=== PATIENT | female | born 1955 | race Caucasian/White ===

== ENCOUNTER 2021-10-18 16:25 | Emergency (ER) | payer MEDICARE, OTHER ==
[~2021-10-18] VITALS: Ht 175.3 cm; Wt 125.3 kg
[2021-10-18] MEDS ORDERED: IV NORMAL SALINE 1,000ML 1,000 ML IV ONE (17:45)
[2021-10-18 17:51] LABS: BASO # 0.1 x10^3/uL (0.0-0.2); BASO % 1 % (0-3); EOS # 0.1 x10^3/uL (0.0-0.7); EOS % 1 % (0-3); HEMATOCRIT 44.6 % (36.0-47.0); HEMOGLOBIN 14.6 g/dL (12.0-15.5); LYMPH # 1.6 x10^3/uL (1.0-4.8); LYMPH % 15 % (24-48); MEAN CORPUSCULAR HEMOGLOBIN 28 pg (25-35); MEAN CORPUSCULAR HGB CONC 33 g/dL (31-37); MEAN CORPUSCULAR VOLUME 86 fL (79-100); MONO # 0.6 x10^3/uL (0.0-1.1); MONO % 5 % (0-9); NEUT # 8.7 x10^3uL (1.8-7.7); NEUT % 79 % (31-73); PLATELET COUNT 274 x10^3/uL (140-400); RED BLOOD COUNT 5.18 x10^6/uL (3.50-5.40); RED CELL DISTRIBUTION WIDTH 13.5 % (11.5-14.5)
[2021-10-18 18:02] LABS: BILIRUBIN,URINE SMALL (NEG); CLARITY,URINE CLEAR; COLOR,URINE YELLOW; GLUCOSE,URINE NEG (NEG)
[2021-10-18 18:03] LABS: BACTERIA,URINE FEW /HPF (0-FEW); NITRITE,URINE NEG (NEG); RBC,URINE OCC /HPF (0-2); SQUAMOUS EPITHELIAL CELL,UR MANY /LPF
--- NOTE | 2021-10-18 18:22 | RAD ---
Exam: CT of abdomen and pelvis without contrast INDICATION: Hematuria TECHNIQUE: Sequential axial images through the abdomen and pelvis obtained without IV contrast. Sagit chai and coronal reformatted images were reconstructed from the axial data and reviewed. Exposure: One or more of the following in the visualized dose reduction techniques were utilized for this examination: 1. Automated exposure control 2. Adjustment of the MA and/or KV according to patient size 3. Use of iterative of reconstructive technique Comparisons: None FINDINGS: Heart size is normal. No pericardial effusion. Visualized lung bases are clear. No pleural effusion. Evaluation of solid organs limited secondary to noncontrast technique. Liver, spleen, pancreas, and adrenals are unremarkable. Gallstones are within the gallbladder. No perinephric inflammation or hydronephrosis. No renal or ureteral calculi are identified. Bladder is decompressed not well evaluated. Uterus is nonenlarged. No abnormal adnexal mass. Large and small bowel are unremarkable. Appendix is nonidentified. No free intra-abdominal air or flu id. No obstruction. Abdominal aorta has a normal course and caliber. No enlarged intra-abdominal lymph nodes are identified. Fat-containing umbilical hernia. No suspicious osseous lesions or acute fractures. IMPRESSION: 1. No renal or ureteral calculi. No evidence for obstructive uropathy. 2. Cholelithiasis Electronically signed by: Lj Mcdaniel MD (10/18/2021 6:20 PM) [facility]
--- NOTE | 2021-10-18 18:50 | PHYS DOC ---
Past History Past Medical History: Renal Disease, Stroke (2016) (ANTONIO MARIE) Past Surgical History: Gastric Bypass (ANTONIO MARIE) Smoking: Quit Greater Than 1 Year Alcohol Use: None (ANTONIO MARIE) General Adult EDM: Chief Complaint: ABDOMINAL PAIN HPI: HPI: Patient is a 66 year old female who presents with weakness, bloody urine for greater than 1 week. Patient is in no pain currently. She says she first noticed blood in her urine approximately 10 days ago. She says it has not been constant since that time, but has had multiple episodes. She reports associated abdominal pain that begins epigastric and radiates down to the low abdomen. She describes the pain as "tightness." Patient does have history of renal failure, though she is unsure whether this is chronic or acute, she quit smoking cigarettes 10 years ago, and has had a perforated gastric ulcer in the past. Patient denies fever, chills, NVD, constipation, dysuria. (ANTONIO MARIE) Review of Systems: Review of Systems: Constitutional: See HPI Eyes: Denies change in visual acuity HENT: Denies nasal congestion or sore throat Respiratory: Denies cough or shortness of breath Cardiovascular: Denies chest pain or edema GI: See HPI : See HPI Musculoskeletal: Denies back pain or joint pain Integument: Denies rash or other skin lesions Neurologic: Denies headache, focal weakness or sensory changes (ANTONIO MARIE) Current Medications: Current Meds: Current Medications Medications (Trade) Dose Ordered Sig/Yarelis Start Time Stop Time Status Last Admin Dose Admin Sodium Chloride 1,000 ml @ 1,000 mls/hr 1X ONCE 10/18/21 17:45 10/18/21 18:45 DC 10/18/21 17:45 1,000 MLS/HR (ANTONIO MARIE) Allergies: Allergies: Allergies Coded Allergies Type Severity Reaction Last Updated Verified No Known Drug Allergies 10/18/21 No (ANTONIO MARIE) Physical Exam: PE: Constitutional: Obese, well developed, well nourished, no acute distress, non- toxic appearance. HENT: Normocephalic, atraumatic, bilateral external ears normal, oropharynx moist, nose normal. Eyes: EOMI, conjunctiva normal, no discharge. Neck: Normal range of motion, no tenderness, supple, no stridor. Cardiovascular: Heart rate regular rhythm, no murmur. Lungs & Thorax: Bilateral breath sounds clear to auscultation. Abdomen: Bowel sounds normal, soft, mild epigastric tenderness reproducible on palpation, no masses, no pulsatile masses. Skin: Warm, dry, no erythema, no rash. Back: No tenderness, no CVA tenderness. Extremities: No tenderness, no cyanosis, no clubbing, ROM intact, no edema. Neurologic: Alert and oriented x4, motor function grossly intact, sensory function grossly intact, no focal deficits noted. (ANTONIO MARIE) Current Patient Data: Labs: Laboratory Tests Test 10/18/21 17:11 10/18/21 17:24 Urine Collection Type Unknown Urine Color Yellow Urine Clarity Clear Urine pH 5.5 Urine Specific [place] 1.015 Urine Protein 30 mg/dl (NEG-TRACE) Urine Glucose (UA) Neg mg/dL (NEG) Urine Ketones (Stick) Neg mg/dL (NEG) Urine Blood Neg (NEG) Urine Nitrite Neg (NEG) Urine Bilirubin Small (NEG) Urine Urobilinogen Dipstick 1.0 mg/dL (0.2 mg/dL) Urine Leukocyte Esterase Neg (NEG) Urine RBC Occ /HPF (0-2) Urine WBC 1-4 /HPF (0-4) Urine Squamous Epithelial Cells Many /LPF Urine Bacteria Few /HPF (0-FEW) White Blood Count 11.0 x10^3/uL (4.0-11.0) Red Blood Count 5.18 x10^6/uL (3.50-5.40) Hemoglobin 14.6 g/dL (12.0-15.5) Hematocrit 44.6 % (36.0-47.0) Mean Corpuscular Volume 86 fL (79-100) Mean Corpuscular Hemoglobin 28 pg (25-35) Mean Corpuscular Hemoglobin Concent 33 g/dL (31-37) Red Cell Distribution Width 13.5 % (11.5-14.5) Platelet Count 274 x10^3/uL (140-400) Neutrophils (%) (Auto) 79 % (31-73) H Lymphocytes (%) (Auto) 15 % (24-48) L Monocytes (%) (Auto) 5 % (0-9) Eosinophils (%) (Auto) 1 % (0-3) Basophils (%) (Auto) 1 % (0-3) Neutrophils # (Auto) 8.7 x10^3uL (1.8-7.7) H Lymphocytes # (Auto) 1.6 x10^3/uL (1.0-4.8) Monocytes # (Auto) 0.6 x10^3/uL (0.0-1.1) Eosinophils # (Auto) 0.1 x10^3/uL (0.0-0.7) Basophils # (Auto) 0.1 x10^3/uL (0.0-0.2) Vital Signs: Vital Signs Date Time Temp Pulse Resp B/P (MAP) Pulse Ox O2 Delivery O2 Flow Rate FiO2 10/18/21 17:41 97.9 64 16 198/108 (138) 96 (ANTONIO MARIE) Radiology/Procedures: Radiology/Procedures: PROCEDURE: CT ABDOMEN PELVIS WO CONTRAST Exam: CT of abdomen and pelvis without contrast INDICATION: Hematuria TECHNIQUE: Sequential axial images through the abdomen and pelvis obtained without IV contrast. Sagittal and coronal reformatted images were reconstructed from the axial data and reviewed. Exposure: One or more of the following in the visualized dose reduction techniques were utilized for this examination: 1. Automated exposure control 2. Adjustment of the MA and/or KV according to patient size 3. Use of iterative of reconstructive technique Comparisons: None FINDINGS: Heart size is normal. No pericardial effusion. Visualized lung bases are clear. No pleural effusion. Evaluation of solid organs limited secondary to noncontrast technique. Liver, spleen, pancreas, and adrenals are unremarkable. Gallstones are within the gallbladder. No perinephric inflammation or hydronephrosis. No renal or ureteral calculi are identified. Bladder is decompressed not well evaluated. Uterus is nonenlarged. No abnormal adnexal mass. Large and small bowel are unremarkable. Appendix is nonidentified. No free intra-abdominal air or fluid. No obstruction. Abdominal aorta has a normal course and caliber. No enlarged intra-abdominal lymph nodes are identified. Fat-containing umbilical hernia. No suspicious osseous lesions or acute fractures. IMPRESSION: 1. No renal or ureteral calculi. No evidence for obstructive uropathy. 2. Cholelithiasis Electronically signed by: Lj Mcdaniel MD (10/18/2021 6:20 PM) -[facility] (ANTONIO MARIE) Heart Score: C/O Chest Pain: No (ANTONIO MARIE) Course & Med Decision Making: Course & Med Decision Making Pertinent Labs and Imaging studies reviewed. (See chart for details) Patient history of smoking combined with gross hematuria concerning for bladder mass. Also considering renal stone, renal mass, kidney injury. Work-up today will include lab work, urinalysis, CT abdomen pelvis. Decided to do CT imaging noncontrast secondary to patient's reported renal history. Patient's blood pressure elevated here in the department. Patient does have history of hypertension, but has taken none of her medications today. She did take 25 mg of her at home hydralazine while in the department. CT negative for obvious bladder mass, renal mass, nephrourolithiasis. Hepatic panel enzymes are elevated, however nothing requiring inpatient evaluation. Patient is to be seen by Dr. Mcdowell as a new patient in coming weeks. Advised her to follow-up with Dr. Mcdowell for repeat lab work during her visit as well as obtain GI referral. I did provide the patient with the name of a brickmason contractor, however advised her that Dr. Mcdowell may direct her elsewhere. Return precautions given for any new symptoms, especially jaundice, scleral icterus, intractable abdominal pain, nausea/vomiting. Patient and her daughter at bedside understand and are agreeable to discharge plan. (ANTONIO MARIE) Dragon Disclaimer: Dragon Disclaimer: This electronic medical record was generated, in whole or in part, using a voice recognition dictation system. (ANTONIO MARIE) Departure Departure: Impression: Primary Impression: Elevated liver enzymes Additional Impression: Bilirubin in urine Disposition: HOME / SELF CARE / HOMELESS Condition: STABLE Referrals: SIDRA MCDOWELL (PCP) MARK SHORE MD Patient Instructions: Liver Panel Additional Instructions: Please schedule an appointment with Dr. Mcdowell at your earliest convenience. I provided you with the contact information for a brickmason contractor as well. It is possible that Dr. Mcdowell will have her on recommendation and referral. During your appointment, she may draw new blood to reevaluate liver enzymes. Please return to the emergency department if you have any new symptoms, especially yellowing of the eyes or skin, severe abdominal pain, nausea/ vomiting. Please take your hypertensive medications as prescribed to avoid elevated blood pressure readings, such as the one seen today. Attending Signature Attending Signature I have reviewed the PA/BRAND ANALYST's note and plan of care. I was available for consultation as needed during the patient's visit in the emergency department. I agree with the clinical impression, plan, and disposition. (SHELIA VOGT DO) ANTONIO MARIE Oct 18, 2021 18:50 SHELIA VOGT DO Oct 18, 2021 22:12
[2021-10-18 18:52] LABS: CALCIUM 8.7 mg/dL (8.5-10.1)
[2021-10-18 19:00] LABS: ALBUMIN/GLOBULIN RATIO 0.9 (1.0-1.7); TOTAL BILIRUBIN 2.1 mg/dL (0.2-1.0); TOTAL PROTEIN 6.5 g/dL (6.4-8.2)
[2021-10-18 19:56] VITALS: BP 194/99
== END 2021-10-18 20:02 | disposition home or self-care (01) ==
LOC: ER 16:25
DX: R74.8 Abnormal levels of other serum enzymes (principal); R82.2 Biliuria; Z87.891 Personal history of nicotine dependence; Z98.84 Bariatric surgery status
CPT/HCPCS: 36415; 74176; 80053; 81001; 83690; 85025; 96360; 96361; 99284; J7030

== ENCOUNTER → 2022-01-04 | Outpatient (CLI) | payer MEDICARE, OTHER ==
--- NOTE | 2022-01-04 15:26 | RAD ---
EXAM: DUAL ENERGY X-RAY ABSORPTIOMETRY (DEXA). HISTORY: Postmenopausal screening. FINDINGS: The lowest measured T-score is -1.1 in the right hip, based on a bone mineral density of 0. 825 g/cm^2. Refer to the worksheets for full detail. No comparison examinations are available. IMPRESSION: 1. Low bone mass. Bone mineral density yields a T-score between -1.0 and -2.5. Fracture risk is incre ased. 2. FRAX report: Not calculated. METHODOLOGY: Dual energy x-ray absorptiometry was performed to measure bone mineral density. The foll owing analysis is based on the 2019 Official Positions of the International Society for Clinical Dens itometry: Measurements of the hips and the average of L1-L4 are preferred. When the spine and/or hip cannot be feasibly measured or interpreted, or in the setting of hyperparathyroidism, distal radial bone minera l density may be measured. The lumbar spine T-score is based on the average bone mineral density of L1-L4. In the setting of art ifact or anatomic abnormality, some lumbar levels may be excluded, and the remaining levels used for calculation. A single lumbar level is not used for diagnosis, and if only a single level is available for assessment, another anatomic site will be used to assign a diagnosis. The hip T-score is based on the bone mineral density measurement of the femoral neck or total proxima l femur of either side, whichever is lowest. Bilateral mean values are not used for diagnosis. The forearm T-score is derived from 33% of the distal radius of the nondominant forearm. Electronically signed by: Deborah Breen MD (01/04/2022 3:24 PM) [id number]
--- NOTE | 2022-01-11 14:12 | RAD ---
BILATERAL DIGITAL SCREENING 2-D MAMMOGRAM INDICATION: Routine screening. COMPARISON: June 06, 2019, June 13, 2017. Interpretation was made using CAD. FINDINGS: Breast Density: There are scattered areas of fibroglandular density. RIGHT BREAST: No suspicious masses, calcifications or areas of architectural distortion are seen. LEFT BREAST: No suspicious masses, calcifications or areas of architectural distortion are seen. IMPRESSION: 1. No imaging evidence of malignancy. ASSESSMENT: BI-RADS 1. Negative. RECOMMENDATION: Routine annual screening mammogram. The facility will notify the patient of the results via mail. Patient information will be entered int o the mammography reminder system with a target recall date for the next mammogram. A reminder letter will be generated by the facility. Electronically signed by: Leah Marrero MD (01/11/2022 2:09 PM) [id number]
== END ==
LOC: MAMMO 14:06
PROVIDERS: ATTEND Family Medicine
DX: Z12.31 Encounter for screening mammogram for malignant neoplasm of breast (principal); M85.88 Other specified disorders of bone density and structure, other site
CPT/HCPCS: 77067; 77080